=== PATIENT | female | born 1935 | race Caucasian/White ===

== ENCOUNTER 2017-08-11 13:36 | Emergency (ER) | payer MEDICARE ==
[2017-08-11 15:40] LABS: BILIRUBIN,URINE NEGATIVE (NEG); CLARITY,URINE CLOUDY; COLOR,URINE YELLOW; GLUCOSE,URINE NEGATIVE (NEG); NITRITE,URINE POSITIVE (NEG); PROTEIN,URINE 30 mg/dL (NEG-TRACE)
[2017-08-11 15:41] LABS: TROPONINI < 0.017 ng/mL (0.000-0.055)
[2017-08-11] MEDS ORDERED: clonazePAM 0.5 MG TABLET PO (15:45)
[2017-08-11 15:46] LABS: THYROID STIM HORMONE (TSH) 0.628 uIU/mL (0.358-3.74)
[2017-08-11 15:47] LABS: BARBITURATES NEG (NEG); BENZODIAZEPINES NEG (NEG); CANNABINOIDS NEG (NEG); COCAINE NEG (NEG); METHADONE NEG (NEG); OPIATES NEG (NEG); PHENCYCLIDINE NEG (NEG)
[2017-08-11 15:48] LABS: AMPHETAMINE/METHAMPHETAMINE NEG (NEG); ETHANOL, URINE NEG (NEG)
[2017-08-11 15:48] LABS: NT-PRO BNP 938 pg/mL (0-449)
[2017-08-11 15:53] LABS: BACTERIA,URINE MANY /HPF (0-FEW); RBC,URINE 0 /HPF (0-2); WBC,URINE >40 /HPF (0-4)
[2017-08-11 15:54] LABS: SQUAMOUS EPITHELIAL CELL,UR MOD /LPF
[2017-08-11 16:23] LABS: ADD MAN DIFF? NO
[2017-08-11 16:25] LABS: BASO # 0.1 x10^3/uL (0.0-0.2); BASO % 1 % (0-3); EOS # 0.2 x10^3/uL (0.0-0.7); EOS % 3 % (0-3); HEMATOCRIT 39.7 % (36.0-47.0); HEMOGLOBIN 13.5 g/dL (12.0-15.5); LYMPH # 2.1 x10^3/uL (1.0-4.8); LYMPH % 27 % (24-48); MEAN CORPUSCULAR HEMOGLOBIN 31 pg (25-35); MEAN CORPUSCULAR HGB CONC 34 g/dL (31-37); MEAN CORPUSCULAR VOLUME 92 fL (79-100); MONO # 0.6 x10^3/uL (0.0-1.1); MONO % 7 % (0-9); NEUT # 4.7 x10^3uL (1.8-7.7); NEUT % 62 % (31-73); PLATELET COUNT 240 x10^3/uL (140-400); RED BLOOD COUNT 4.31 x10^6/uL (3.50-5.40); RED CELL DISTRIBUTION WIDTH 14.2 % (11.5-14.5); WHITE BLOOD COUNT 7.7 x10^3/uL (4.0-11.0)
[2017-08-11 16:37] LABS: ANION GAP 6 (6-14); BLOOD UREA NITROGEN 10 mg/dL (7-20); CALCIUM 8.7 mg/dL (8.5-10.1); CARBON DIOXIDE 29 mmol/L (21-32); CHLORIDE 106 mmol/L (98-107); CREATININE 0.6 mg/dL (0.6-1.0); GFR 95.9; GLUCOSE 86 mg/dL (70-99); LIPASE 90 U/L (73-393); MAGNESIUM 2.1 mg/dL (1.8-2.4); POTASSIUM 3.3 mmol/L (3.5-5.1); SODIUM 141 mmol/L (136-145)
[2017-08-11 16:50] LABS: CKMB MASS 0.5 ng/mL (0.0-3.6); CREATINE KINASE 29 U/L (26-192)
== END 2017-08-11 20:58 | disposition home or self-care (01) ==
LOC: ER 13:36
DX: N39.0 Urinary tract infection, site not specified (principal); I10 Essential (primary) hypertension; Z90.710 Acquired absence of both cervix and uterus; Z90.49 Acquired absence of other specified parts of digestive tract
CPT/HCPCS: 36415; 71045; 80048; 80307; 81001; 82553; 83690; 83735; 83880; 84443; 84484; 85025; 87086; 93005; 99285-25

== ENCOUNTER 2017-09-27 16:38 | Inpatient (IN) | payer MEDICARE ==
[2017-09-27 17:08] LABS: ADD MAN DIFF? NO
[2017-09-27 17:09] LABS: BASO # 0.1 x10^3/uL (0.0-0.2); BASO % 1 % (0-3); EOS # 0.3 x10^3/uL (0.0-0.7); EOS % 3 % (0-3); HEMATOCRIT 44.7 % (36.0-47.0); HEMOGLOBIN 15.3 g/dL (12.0-15.5); LYMPH # 2.3 x10^3/uL (1.0-4.8); LYMPH % 22 % (24-48); MEAN CORPUSCULAR HEMOGLOBIN 31 pg (25-35); MEAN CORPUSCULAR HGB CONC 34 g/dL (31-37); MEAN CORPUSCULAR VOLUME 91 fL (79-100); MONO # 0.8 x10^3/uL (0.0-1.1); MONO % 7 % (0-9); NEUT # 6.9 x10^3uL (1.8-7.7); NEUT % 67 % (31-73); PLATELET COUNT 266 x10^3/uL (140-400); RED CELL DISTRIBUTION WIDTH 14.7 % (11.5-14.5); WHITE BLOOD COUNT 10.3 x10^3/uL (4.0-11.0)
[2017-09-27] MEDS: IPRATRPIUM/ALBUTEROL 0.5/2.5MG 3 ML NEBU. NEB (17:18)
[2017-09-27 17:32] LABS: INR 1.1 (0.8-1.1); PROTHROMBIN TIME PATIENT 13.4 SEC (11.7-14.0)
[2017-09-27 17:33] LABS: PARTIAL THROMBOPLASTIN TIME 28 SEC (24-38)
[2017-09-27 17:35] LABS: TROPONINI 0.021 ng/mL (0.000-0.055)
[2017-09-27 17:38] LABS: NT-PRO BNP 1730 pg/mL (0-449)
[2017-09-27 17:40] LABS: ANION GAP 13 (6-14); BLOOD UREA NITROGEN 14 mg/dL (7-20); BUN/CREATININE RATIO 20 (6-20); CALCIUM 8.8 mg/dL (8.5-10.1); CARBON DIOXIDE 24 mmol/L (21-32); CHLORIDE 106 mmol/L (98-107); CREATININE 0.7 mg/dL (0.6-1.0); GFR 80.3; GLUCOSE 106 mg/dL (70-99); POTASSIUM 3.5 mmol/L (3.5-5.1); SODIUM 143 mmol/L (136-145)
[2017-09-27 17:41] LABS: ACETAMIN < 2 mcg/ml (10-30); ETHANOL < 10 mg/dL (0-10); SALIC 3.5 mg/dL (2.8-20.0)
[2017-09-27 17:41] LABS: THYROID STIM HORMONE (TSH) 0.661 uIU/mL (0.358-3.74)
[2017-09-27 17:42] LABS: D-DIMER 0.49 ug/mlFEU (0.00-0.50)
[2017-09-27 17:43] LABS: ALBUMIN 3.5 g/dL (3.4-5.0); ALBUMIN/GLOBULIN RATIO 0.9 (1.0-1.7); ALK PHOS 91 U/L (46-116); ALT (SGPT) 13 U/L (14-59); AST (SGOT) 11 U/L (15-37); MAGNESIUM 1.9 mg/dL (1.8-2.4); TOTAL BILIRUBIN 0.8 mg/dL (0.2-1.0); TOTAL PROTEIN 7.4 g/dL (6.4-8.2)
[2017-09-27] MEDS: diphenhydrAMINE 50 MG/ML VIAL IVP (17:47)
[2017-09-27 18:40] LABS: BILIRUBIN,URINE NEGATIVE (NEG); CLARITY,URINE CLOUDY; COLOR,URINE YELLOW; GLUCOSE,URINE NEGATIVE (NEG); NITRITE,URINE POSITIVE (NEG); PH,URINE 6.5; PROTEIN,URINE 30 mg/dL (NEG-TRACE); UROBILINOGEN,URINE 0.2 mg/dL (0.2 mg/dL)
[2017-09-27 18:42] LABS: BACTERIA,URINE MANY /HPF (0-FEW); SQUAMOUS EPITHELIAL CELL,UR FEW /LPF; WBC,URINE >40 /HPF (0-4)
[2017-09-27 18:54] LABS: AMPHETAMINE/METHAMPHETAMINE NEG (NEG); BARBITURATES NEG (NEG); BENZODIAZEPINES NEG (NEG); CANNABINOIDS NEG (NEG); COCAINE NEG (NEG); ETHANOL, URINE NEG (NEG); METHADONE NEG (NEG); OPIATES NEG (NEG); PHENCYCLIDINE NEG (NEG)
[2017-09-27] MEDS ORDERED: ONDANSETRON PF 4 MG/2 ML VIAL. IV (19:00)
[2017-09-27] MEDS ORDERED: cefTRIAXone SODIUM 2 GM in IV DEXTROSE 5% 100 ML IV (19:00)
[2017-09-27] MEDS: cefTRIAXone IV Push 2 GM VIAL. IVP (19:05)
[2017-09-28] MEDS: ASPIRIN 325 MG TABLET PO (09:15)
[2017-09-28 09:45] LABS: ADD MAN DIFF? NO
[2017-09-28 09:56] LABS: BASO % 1 % (0-3); EOS # 0.3 x10^3/uL (0.0-0.7); EOS % 4 % (0-3); HEMATOCRIT 44.3 % (36.0-47.0); HEMOGLOBIN 14.9 g/dL (12.0-15.5); LYMPH # 1.6 x10^3/uL (1.0-4.8); LYMPH % 17 % (24-48); MEAN CORPUSCULAR HEMOGLOBIN 31 pg (25-35); MEAN CORPUSCULAR HGB CONC 34 g/dL (31-37); MEAN CORPUSCULAR VOLUME 92 fL (79-100); MONO # 0.7 x10^3/uL (0.0-1.1); MONO % 8 % (0-9); NEUT # 6.5 x10^3uL (1.8-7.7); NEUT % 71 % (31-73); PLATELET COUNT 221 x10^3/uL (140-400); RED BLOOD COUNT 4.82 x10^6/uL (3.50-5.40); RED CELL DISTRIBUTION WIDTH 14.6 % (11.5-14.5); WHITE BLOOD COUNT 9.1 x10^3/uL (4.0-11.0)
[2017-09-28 10:11] LABS: ANION GAP 12 (6-14); BLOOD UREA NITROGEN 13 mg/dL (7-20); CALCIUM 8.3 mg/dL (8.5-10.1); CARBON DIOXIDE 26 mmol/L (21-32); CHLORIDE 108 mmol/L (98-107); CREATININE 0.8 mg/dL (0.6-1.0); GFR 68.8; GLUCOSE 116 mg/dL (70-99); POTASSIUM 3.1 mmol/L (3.5-5.1); SODIUM 146 mmol/L (136-145)
[2017-09-28] MEDS: ACETAMINOPHEN 325 MG TABLET. PO (12:18)
[2017-09-28] MEDS: diphenhydrAMINE HCL 25 MG CAPSULE PO ×2 (12:19→21:55)
[2017-09-28] MEDS: CLOPIDOGREL BISULFATE 75 MG TABLET PO (12:19)
[2017-09-28] MEDS: cefTRIAXone IV Push 2 GM VIAL. IVP (18:14)
[2017-09-28] MEDS: LACTOBACILLUS RHAMNOSUS GG 1 CAPSULE. PO (21:00)
[2017-09-29] MEDS: CLOPIDOGREL BISULFATE 75 MG TABLET PO (08:46)
[2017-09-29] MEDS: LACTOBACILLUS RHAMNOSUS GG 1 CAPSULE. PO ×2 (08:46→21:00)
[2017-09-29] MEDS: diphenhydrAMINE HCL 25 MG CAPSULE PO ×2 (08:46→21:00)
[2017-09-29] MEDS: ASPIRIN 325 MG TABLET PO (08:46)
[2017-09-29] MEDS ORDERED: POTASSIUM CHLORIDE 20 MEQ TABLET.ER. PO (13:00)
[2017-09-29] MEDS: FUROSEMIDE 40 MG/4 ML VIAL. IVP (13:13)
[2017-09-29] MEDS: POTASSIUM CHLORIDE 20 MEQ/15 ML ORAL LIQUID. PEG ×2 (13:14→19:46)
[2017-09-29] MEDS: IPRATRPIUM/ALBUTEROL 0.5/2.5MG 3 ML NEBU. NEB ×3 (14:36→18:59)
[2017-09-29] MEDS: BUDESONIDE 0.5 MG/2 ML NEBU. NEB ×2 (14:36→19:00)
[2017-09-29] MEDS: cefTRIAXone IV Push 2 GM VIAL. IVP (18:21)
[2017-09-30] MEDS: ACETAMINOPHEN 325 MG TABLET. PO (04:43)
[2017-09-30 05:55] LABS: ANION GAP 10 (6-14); BLOOD UREA NITROGEN 18 mg/dL (7-20); CALCIUM 9.1 mg/dL (8.5-10.1); CARBON DIOXIDE 26 mmol/L (21-32); CHLORIDE 104 mmol/L (98-107); CREATININE 0.8 mg/dL (0.6-1.0); GFR 68.8; GLUCOSE 96 mg/dL (70-99); POTASSIUM 3.7 mmol/L (3.5-5.1); SODIUM 140 mmol/L (136-145)
[2017-09-30] MEDS: IPRATRPIUM/ALBUTEROL 0.5/2.5MG 3 ML NEBU. NEB ×4 (07:28→19:10)
[2017-09-30] MEDS: BUDESONIDE 0.5 MG/2 ML NEBU. NEB ×2 (07:29→19:10)
[2017-09-30] MEDS: CLOPIDOGREL BISULFATE 75 MG TABLET PO (08:24)
[2017-09-30] MEDS: diphenhydrAMINE HCL 25 MG CAPSULE PO ×2 (08:24→21:20)
[2017-09-30] MEDS: LACTOBACILLUS RHAMNOSUS GG 1 CAPSULE. PO ×2 (08:24→21:20)
[2017-09-30] MEDS: ASPIRIN 325 MG TABLET PO (08:24)
[2017-09-30] MEDS: FUROSEMIDE 40 MG/4 ML VIAL. IVP (09:27)
[2017-09-30] MEDS: FUROSEMIDE 40 MG TABLET. PO (12:00)
[2017-09-30] MEDS: POTASSIUM CHLORIDE 10 MEQ TABLET.ER. PO (12:28)
[2017-09-30] MEDS: CALCIUM CARBONATE 500 MG TAB.CHEW PO ×2 (16:11→19:32)
[2017-09-30] MEDS: OLANZapine 5 MG TABLET PO (16:27)
[2017-09-30] MEDS: cefTRIAXone IV Push 2 GM VIAL. IVP (18:00)
[2017-09-30] MEDS: ATORVASTATIN CALCIUM 20 MG TABLET PO (21:21)
[2017-10-01] MEDS: ACETAMINOPHEN 325 MG TABLET. PO (03:41)
[2017-10-01 06:16] LABS: ANION GAP 11 (6-14); BLOOD UREA NITROGEN 21 mg/dL (7-20); CALCIUM 8.9 mg/dL (8.5-10.1); CARBON DIOXIDE 27 mmol/L (21-32); CHLORIDE 103 mmol/L (98-107); CREATININE 0.9 mg/dL (0.6-1.0); GFR 60.1; GLUCOSE 110 mg/dL (70-99); SODIUM 141 mmol/L (136-145)
[2017-10-01] MEDS: LACTOBACILLUS RHAMNOSUS GG 1 CAPSULE. PO ×2 (08:23→09:00)
[2017-10-01] MEDS: diphenhydrAMINE HCL 25 MG CAPSULE PO (08:24)
[2017-10-01] MEDS: FUROSEMIDE 40 MG TABLET. PO (08:24)
[2017-10-01] MEDS: ASPIRIN 325 MG TABLET PO (08:24)
[2017-10-01] MEDS: POTASSIUM CHLORIDE 10 MEQ TABLET.ER. PO (08:25)
[2017-10-01] MEDS: CLOPIDOGREL BISULFATE 75 MG TABLET PO (08:26)
[2017-10-01] MEDS: BUDESONIDE 0.5 MG/2 ML NEBU. NEB (08:35)
[2017-10-01] MEDS: IPRATRPIUM/ALBUTEROL 0.5/2.5MG 3 ML NEBU. NEB (08:35)
[2017-10-01] MEDS: CIPROFLOXACIN HCL 250 MG TABLET. PO (09:09)
[2017-10-01] MEDS ORDERED: ACETAMINOPHEN 325 MG TABLET. PO (09:45)
[2017-10-01] MEDS ORDERED: LISINOPRIL 20 MG TABLET PO (10:00)
[2017-10-01] MEDS ORDERED: DIPHENHYDRAMINE HCL PO (21:00)
[2017-10-02] MEDS ORDERED: CLOPIDOGREL BISULFATE 75 MG TABLET PO (09:00)
[2017-10-02] MEDS ORDERED: ATORVASTATIN CALCIUM 20 MG TABLET PO (09:00)
[2017-10-02] MEDS ORDERED: ASPIRIN 325 MG TABLET PO (09:00)
== END 2017-10-01 12:01 | disposition home health service (06) | DRG 291 ==
LOC: ER 16:38 → 5 NORTH 19:44
DX: I50.43 Acute on chronic combined systolic (congestive) and diastolic (congestive) heart failure (principal); G93.40 Encephalopathy, unspecified; J44.1 Chronic obstructive pulmonary disease with (acute) exacerbation; I42.9 Cardiomyopathy, unspecified; F22 Delusional disorders; N30.00 Acute cystitis without hematuria; I25.10 Atherosclerotic heart disease of native coronary artery without angina pectoris; F17.210 Nicotine dependence, cigarettes, uncomplicated; M19.90 Unspecified osteoarthritis, unspecified site; F41.9 Anxiety disorder, unspecified; Z87.01 Personal history of pneumonia (recurrent); Z90.49 Acquired absence of other specified parts of digestive tract; Z90.89 Acquired absence of other organs; Z90.710 Acquired absence of both cervix and uterus; Z95.5 Presence of coronary angioplasty implant and graft
CPT/HCPCS: 36415; 71045; 80048; 80053; 80307; 80329; 81001; 83735; 83880; 84443; 84484; 85025; 85379; 85610; 85730; 87086; 93005; 94640; 94760; G0480; J0696; J1200; J1940; J7620; J7626; Q0163

== ENCOUNTER 2018-08-15 03:27 | Emergency (ER) | payer MEDICARE ==
[~2018-08-15] VITALS: Ht 160 cm; Wt 71.7 kg
[~2018-08-15 03:27] MED LIST: ACET325T9 PO; ACET500T68 PO; AMOX1TAB58 PO; ASPI-612 PO; ASPI325T8 PO; ATOR20TA58 PO; AZIT250T6 PO; CIPR500T94 PO; CLOP75TA PO; DIPH25CA58 PO; DIPH50CA PO; DOXY100T PO; IPRA3AMP29 NEB; LISI-130 PO; LISI-338 PO; METO-239 PO; PRED-220 PO; PRED20TA PO
--- NOTE | 2018-08-15 03:45 | PHYS DOC ---
Past Medical History Past Medical History: COPD, UTI, Unknown Additional Past Medical Histor: PT IS A POOR HISTORIAN AND UNCOOPERATIVE WITH ER STAFF, "PYSCH ISSUES" Past Surgical History: Appendectomy, Cholecystectomy, Hysterectomy, Tonsillectomy Alcohol Use: None Drug Use: None Adult General HPI HPI Patient is an 83-year-old female who presents to the emergency department via EMS. EMS reports that they're very familiar with the patient, worse times per month to various hospitals. The patient states the main reason she called EMS today was that she was feeling short of breath, she does have a history of COPD and unfortunately is a current smoker. She also complains of right hip pain. It appears that this has been a chronic problem for the patient, as she was hospitalized here at the beginning of June with similar complaints. She denies any chest pain or shortness of breath. She has had a nonproductive cough. She denies any fevers or chills, nausea or vomiting, numbness, weakness, or any new injuries. There are no alleviating, or exacerbating factors to the patient's symptoms. The patient does appear to have an underlying psychiatric history, and is somewhat cantankerous upon arrival. Review of Systems Review of Systems Constitutional: Denies fever or chills [] Eyes: Denies change in visual acuity, redness, or eye pain [] HENT: Denies nasal congestion or sore throat [] Respiratory: Reports nonproductive cough and shortness of breath.[] Cardiovascular:The patient denies any chest pain, palpitations, or orthopneaI [] GI: Denies abdominal pain, nausea, vomiting, bloody stools or diarrhea [] : Denies dysuria or hematuria [] Musculoskeletal: Denies back pain or joint pain other than right hip pain, which is chronic. [] Integument: Denies rash or skin lesions [] Neurologic: Denies headache, focal weakness or sensory changes [] Endocrine: Denies polyuria or polydipsia [] All other systems were reviewed and found to be within normal limits, except as documented in this note. Current Medications Current Medications Current Medications Medications (Trade) Dose Ordered Sig/Jesse Start Time Stop Time Status Last Admin Dose Admin Acetaminophen (Tylenol) 650 mg 1X ONCE 08/15/18 05:00 08/15/18 05:01 08/15/18 04:34 650 MG Albuterol/ Ipratropium (Duoneb) 3 ml 1X ONCE 08/15/18 04:00 08/15/18 04:01 DC 08/15/18 04:00 3 ML Methylprednisolone Sodium Succinate (SOLU-Medrol 125MG VIAL) 125 mg 1X ONCE 08/15/18 04:00 08/15/18 04:01 DC 08/15/18 04:05 125 MG Allergies Allergies Allergies Uncoded Allergies Type Severity Reaction Last Updated Verified "All Medications" Allergy Severe 08/11/17 Physical Exam Physical Exam PHYSICAL EXAM: CONSTITUTIONAL: Well developed, well nourished HEAD: normocephalic, atraumatic EENT: PERRL, EOMI. Conjunctivae normal color, sclerae non-icteric; moist mucous membranes. NECK: Supple, non-tender; no meningismus. LUNGS: Breath sounds, with some scattered wheezes, without any rales or rhonchi. HEART: Regular rate and rhythm, no murmur CHEST: No deformity; non-tender ABDOMEN: The abdomen is soft, and non-tender, no masses or bruits. EXTREM: Normal ROM; no deformity, no calf tenderness. Normal pulses palpable in all extremities. There is no pedal edema. There is tenderness to palpation in the right hip diffusely without any deformity. The patient is able to ambulate with the use of her walker. SKIN: No rash; no diaphoresis NEURO: Alert; normal speech and cognition; CN's grossly intact; strength grossly intact without focal deficit. BACK: No CVA TTP. PSYCHIATRIC: The patient is cantankerous but does not appear acutely psychotic, denies suicidal or homicidal ideation. Current Patient Data Vital Signs Vital Signs Date Time Temp Pulse Resp B/P (MAP) Pulse Ox O2 Delivery O2 Flow Rate FiO2 08/15/18 04:03 96 Nasal Cannula 2.0 08/15/18 03:55 98.9 89 24 143/72 (95) 98.9 Lab Values Laboratory Tests Test 08/15/18 03:50 White Blood Count 10.2 x10^3/uL (4.0-11.0) Red Blood Count 4.89 x10^6/uL (3.50-5.40) Hemoglobin 15.3 g/dL (12.0-15.5) Hematocrit 45.8 % (36.0-47.0) Mean Corpuscular Volume 94 fL (79-100) Mean Corpuscular Hemoglobin 31 pg (25-35) Mean Corpuscular Hemoglobin Concent 33 g/dL (31-37) Red Cell Distribution Width 14.4 % (11.5-14.5) Platelet Count 212 x10^3/uL (140-400) Neutrophils (%) (Auto) 65 % (31-73) Lymphocytes (%) (Auto) 24 % (24-48) Monocytes (%) (Auto) 6 % (0-9) Eosinophils (%) (Auto) 4 % (0-3) H Basophils (%) (Auto) 1 % (0-3) Neutrophils # (Auto) 6.7 x10^3uL (1.8-7.7) Lymphocytes # (Auto) 2.4 x10^3/uL (1.0-4.8) Monocytes # (Auto) 0.6 x10^3/uL (0.0-1.1) Eosinophils # (Auto) 0.4 x10^3/uL (0.0-0.7) Basophils # (Auto) 0.1 x10^3/uL (0.0-0.2) Sodium Level 144 mmol/L (136-145) Potassium Level 3.4 mmol/L (3.5-5.1) L Chloride Level 107 mmol/L (98-107) Carbon Dioxide Level 26 mmol/L (21-32) Anion Gap 11 (6-14) Blood Urea Nitrogen 13 mg/dL (7-20) Creatinine 0.7 mg/dL (0.6-1.0) Estimated GFR (Cockcroft-Gault) 80.1 BUN/Creatinine Ratio 19 (6-20) Glucose Level 124 mg/dL (70-99) H Calcium Level 9.0 mg/dL (8.5-10.1) Total Bilirubin 0.4 mg/dL (0.2-1.0) Aspartate Amino Transferase (AST) 18 U/L (15-37) Alanine Aminotransferase (ALT) 14 U/L (14-59) Alkaline Phosphatase 81 U/L (46-116) Creatine Kinase 55 U/L (26-192) Creatine Kinase MB (Mass) 1.1 ng/mL (0.0-3.6) Creatine Kinase MB Relative Index 2.0 % (0-4) Troponin I Quantitative < 0.017 ng/mL (0.000-0.055) CH-Xwz-V-Type Natriuretic Peptide 2006 pg/mL (0-449) H Total Protein 6.6 g/dL (6.4-8.2) Albumin 3.5 g/dL (3.4-5.0) Albumin/Globulin Ratio 1.1 (1.0-1.7) Laboratory Tests 08/15/18 03:50 Laboratory Tests 08/15/18 03:50 EKG EKG [Normal sinus rhythm at a rate of 112 beats for minute, left axis deviation, left anterior fascicular block, there are no acute ischemic ST/T changes. The patient's EKG is unchanged compared to her prior EKG.] Radiology/Procedures Radiology/Procedures [ER physician preliminary chest x-ray interpretation: No acute abnormality. ER physician right hip x-ray interpretation: Severe arthritic changes without any acute fracture, unchanged compared to patient's prior x-ray.] Course & Med Decision Making Course & Med Decision Making Pertinent Labs and Imaging studies reviewed. (See chart for details) [5:00 AM: The patient's condition remains stable and she is feeling significantly better at this time. Her lungs have improved. I discussed importance of close follow-up with her PCP, and return precautions.] Dragon Disclaimer Dragon Disclaimer This electronic medical record was generated, in whole or in part, using a voice recognition dictation system. Departure Departure Impression: Primary Impression: Wheezing Additional Impressions: Chronic right hip pain Arthritis of hip Disposition: 01 HOME, SELF-CARE Condition: STABLE Patient Instructions: Arthritis, Nonspecific, Chronic Obstructive Pulmonary Disease Exacerbation, Hip Pain Problem Qualifiers ALECIA AQUINO MD Aug 15, 2018 03:45
[2018-08-15] MEDS ORDERED: methylPREDNISolone SOD SUCC PF 125 MG/2 ML VIAL. IV ONE (04:00)
[2018-08-15] MEDS ORDERED: IPRATRPIUM/ALBUTEROL 0.5/2.5MG 3 ML NEBU. NEB ONE (04:00)
[2018-08-15 04:02] LABS: BASO # 0.1 x10^3/uL (0.0-0.2); BASO % 1 % (0-3); EOS # 0.4 x10^3/uL (0.0-0.7); EOS % 4 % (0-3); HEMATOCRIT 45.8 % (36.0-47.0); HEMOGLOBIN 15.3 g/dL (12.0-15.5); LYMPH # 2.4 x10^3/uL (1.0-4.8); LYMPH % 24 % (24-48); MEAN CORPUSCULAR HEMOGLOBIN 31 pg (25-35); MEAN CORPUSCULAR HGB CONC 33 g/dL (31-37); MEAN CORPUSCULAR VOLUME 94 fL (79-100); MONO # 0.6 x10^3/uL (0.0-1.1); MONO % 6 % (0-9); NEUT # 6.7 x10^3uL (1.8-7.7); NEUT % 65 % (31-73); PLATELET COUNT 212 x10^3/uL (140-400); RED BLOOD COUNT 4.89 x10^6/uL (3.50-5.40); RED CELL DISTRIBUTION WIDTH 14.4 % (11.5-14.5); WHITE BLOOD COUNT 10.2 x10^3/uL (4.0-11.0)
[2018-08-15 04:32] LABS: CREATININE 0.7 mg/dL (0.6-1.0); GFR 80.1; POTASSIUM 3.4 mmol/L (3.5-5.1)
[2018-08-15 04:37] LABS: ALBUMIN 3.5 g/dL (3.4-5.0); ALBUMIN/GLOBULIN RATIO 1.1 (1.0-1.7); TOTAL BILIRUBIN 0.4 mg/dL (0.2-1.0); TOTAL PROTEIN 6.6 g/dL (6.4-8.2)
--- NOTE | 2018-08-15 04:54 | RAD ---
Two-view right hip dated 08/15/2018. Comparison made to 06/22/2018. CLINICAL INDICATION: Hip pain. No known injury. FINDINGS: 2 views right hip show moderate to severe degenerative changes at the right hip joint. The femoral neck is grossly intact. No displaced fracture. Alignment anatomic. There is diffuse soft tissue swelling. Midline surgical tory. IMPRESSION: 1. No evidence of displaced right hip fracture. If there is persistent clinical concern for occult fracture or insufficiency fracture, MRI would better evaluate. 2. 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 Electronically signed by: Jaylan Dinh MD (08/15/2018 4:51 AM) [id number]
--- NOTE | 2018-08-15 04:55 | RAD ---
Single view chest dated 08/15/2018. Comparison made to 06/19/2018. Clinical data indication: Shortness of breath. FINDINGS: Single upright portable exam performed. Heart and mediastinal contours are stable. Lungs are somewhat hyperinflated but otherwise clear. No consolidation or pleural effusion. No pneumothorax. IMPRESSION: No acute radiographic abnormality. Stable findings compared to 06/19/2018. Electronically signed by: Jaylan Dinh MD (08/15/2018 4:51 AM) [id number]
[2018-08-15] MEDS ORDERED: ACETAMINOPHEN 325 MG TABLET. PO ONE (05:00)
[2018-08-15 05:25] VITALS: BP 104/52
--- NOTE | 2018-08-15 07:19 | EKG ---
[facility] [address] [place] [address] Test Date: 2018-08-15 Test Time: 03:48:49 Pat Name: GREG COLIN Department: Room: Gender: F Automatic Trimming Sewer: : [id number] Requested By: ALECIA AQUINO Order Number: [id number] Reading MD: Ramón Brooke MD Measurements Intervals [place] Rate: 112 P: -129 [place]: 112 QRS: -36 QRSD: 138 T: 113 QT: 368 QTc: 504 Interpretive Statements SINUS TACHYCARDIA NON-SPECIFIC ST/T CHANGES LAD Electronically Signed On 08-16-2018 7:01:53 ONCOLOGY REP SPECIALIST by Ramón Brooke MD
== END 2018-08-15 06:00 | disposition home or self-care (01) ==
LOC: ER 03:27
DX: R06.2 Wheezing (principal); M16.11 Unilateral primary osteoarthritis, right hip; G89.29 Other chronic pain; J44.9 Chronic obstructive pulmonary disease, unspecified; Z90.89 Acquired absence of other organs; Z90.49 Acquired absence of other specified parts of digestive tract; Z90.710 Acquired absence of both cervix and uterus
CPT/HCPCS: 36415; 71045; 73502; 80053; 82553; 83880; 84484; 85025; 93005; 94640; 96374; 99284; J2930; J7620